=== PATIENT | female | born 1975 | race Two or more races ===

== ENCOUNTER → 2024-03-26 | Outpatient (CLI) | payer MEDICAID, SELFPAY | END | disposition home or self-care (01) | PROVIDERS: PCP Internal Medicine; Referring Provider Internal Medicine; Visit Provider Student in an Organized Health Care Education/Training Program | DX: S91.302A Unspecified open wound, left foot, initial encounter (principal); X58.XXXA Exposure to other specified factors, initial encounter; M14.672 Charcot's joint, left ankle and foot; I10 Essential (primary) hypertension; D64.9 Anemia, unspecified; E11.40 Type 2 diabetes mellitus with diabetic neuropathy, unspecified; Z99.2 Dependence on renal dialysis; Z86.73 Personal history of transient ischemic attack (TIA), and cerebral infarction without residual deficits; M21.6X2 Other acquired deformities of left foot | CPT/HCPCS: 11042; 99213; A9270; G0463 ==

== ENCOUNTER → 2024-04-03 | Outpatient (CLI) | payer MEDICAID, SELFPAY | END | disposition home or self-care (01) | PROVIDERS: PCP Internal Medicine; Referring Provider Internal Medicine; Visit Provider Surgery | DX: S91.302A Unspecified open wound, left foot, initial encounter (principal); X58.XXXA Exposure to other specified factors, initial encounter; M14.672 Charcot's joint, left ankle and foot; I10 Essential (primary) hypertension; D64.9 Anemia, unspecified; E11.40 Type 2 diabetes mellitus with diabetic neuropathy, unspecified; Z99.2 Dependence on renal dialysis; Z86.73 Personal history of transient ischemic attack (TIA), and cerebral infarction without residual deficits; M21.6X2 Other acquired deformities of left foot | CPT/HCPCS: 99213; A9270; G0463 ==

== ENCOUNTER → 2024-04-15 | Outpatient (CLI) | payer MEDICAID, SELFPAY | END | disposition home or self-care (01) | LOC: SWHD 14:15 | PROVIDERS: PCP Internal Medicine; Referring Provider Internal Medicine; Visit Provider Student in an Organized Health Care Education/Training Program | DX: S91.302A Unspecified open wound, left foot, initial encounter (principal); X58.XXXA Exposure to other specified factors, initial encounter; M14.672 Charcot's joint, left ankle and foot; I10 Essential (primary) hypertension; D64.9 Anemia, unspecified; E11.40 Type 2 diabetes mellitus with diabetic neuropathy, unspecified; Z99.2 Dependence on renal dialysis; Z86.73 Personal history of transient ischemic attack (TIA), and cerebral infarction without residual deficits; M21.6X2 Other acquired deformities of left foot | CPT/HCPCS: 17250; A9270 ==

== ENCOUNTER → 2024-04-22 | Outpatient (CLI) | payer MEDICAID, SELFPAY | END | disposition home or self-care (01) | LOC: SWHD 14:05 | PROVIDERS: PCP Internal Medicine; Referring Provider Internal Medicine; Visit Provider Student in an Organized Health Care Education/Training Program | DX: S91.302A Unspecified open wound, left foot, initial encounter (principal); X58.XXXA Exposure to other specified factors, initial encounter; M14.672 Charcot's joint, left ankle and foot; I10 Essential (primary) hypertension; D64.9 Anemia, unspecified; E11.40 Type 2 diabetes mellitus with diabetic neuropathy, unspecified; Z99.2 Dependence on renal dialysis; Z86.73 Personal history of transient ischemic attack (TIA), and cerebral infarction without residual deficits; M21.6X2 Other acquired deformities of left foot | CPT/HCPCS: 99212; G0463 ==

== ENCOUNTER → 2024-05-03 | Outpatient (CLI) | payer MEDICAID, SELFPAY | END | disposition home or self-care (01) | LOC: SWHD 14:31 | PROVIDERS: PCP Internal Medicine; Referring Provider Internal Medicine; Visit Provider Physician Assistant | DX: S91.302A Unspecified open wound, left foot, initial encounter (principal); X58.XXXA Exposure to other specified factors, initial encounter; L97.429 Non-pressure chronic ulcer of left heel and midfoot with unspecified severity; M14.672 Charcot's joint, left ankle and foot; I10 Essential (primary) hypertension; D64.9 Anemia, unspecified; E11.40 Type 2 diabetes mellitus with diabetic neuropathy, unspecified; Z99.2 Dependence on renal dialysis; Z86.73 Personal history of transient ischemic attack (TIA), and cerebral infarction without residual deficits; M21.6X2 Other acquired deformities of left foot; R60.0 Localized edema | CPT/HCPCS: 99213; G0463 ==

== ENCOUNTER → 2024-05-17 | Outpatient (CLI) | payer MEDICAID, SELFPAY | END | disposition home or self-care (01) | LOC: SWHD 15:38 | PROVIDERS: PCP Internal Medicine; Referring Provider Internal Medicine; Visit Provider Surgery | DX: S91.302A Unspecified open wound, left foot, initial encounter (principal); X58.XXXA Exposure to other specified factors, initial encounter; L97.429 Non-pressure chronic ulcer of left heel and midfoot with unspecified severity; M14.672 Charcot's joint, left ankle and foot; I10 Essential (primary) hypertension; D64.9 Anemia, unspecified; E11.40 Type 2 diabetes mellitus with diabetic neuropathy, unspecified; Z99.2 Dependence on renal dialysis; Z86.73 Personal history of transient ischemic attack (TIA), and cerebral infarction without residual deficits; M21.6X2 Other acquired deformities of left foot; R60.0 Localized edema | CPT/HCPCS: 99212; G0463 ==

== ENCOUNTER 2024-07-11 06:40 | Day surgery (SDC) | payer MEDICAID, SELFPAY ==
--- NOTE | 2024-07-10 06:50 | EKG_ITS ---
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
[2024-07-10 09:16] VITALS: BMI 40.8
[2024-07-10 11:05] LABS: Basophils % (Auto) 1 % (0-2.5); Eosinophils # (Auto) 0.1 Thou/mm3 (0.0-0.5); Eosinophils % (Auto) 2 % (0-10); Hematocrit 34.2 % (36.0-46.0); Hemoglobin 11.2 g/dL (12.0-16.0); Immature Granulocytes % (Auto) 1 % (0-0); Immature Granulocytes Auto 0.03 Thou/mm3 (0.00-0.00); Lymphocytes # (Auto) 3.5 Thou/mm3 (1.0-4.8); Lymphocytes % (Auto) 54 % (10-50); Mean Corpuscular HGB Conc 32.7 g/dl (31.0-37.0); Mean Corpuscular Hemoglobin 29.9 pg (25.0-35.0); Mean Corpuscular Volume 91 fL (80-100); Monocytes # (Auto) 0.3 Thou/mm3 (0.0-0.8); Monocytes % (Auto) 5 % (0-12); Neutrophils # (Auto) 2.4 Thou/mm3 (1.8-7.7); Neutrophils % (Auto) 38 % (37-80); Nucleated Red Blood Cell % 0 /100 WBC (0); Platelet Count 207 Thou/mm3 (140-440); RDW Standard Deviation 45.4 fL (36.4-46.3); Red Blood Count 3.75 Miln/mm3 (4.00-5.20); White Blood Count 6.4 Thou/mm3 (3.6-11.0)
[2024-07-10 11:12] LABS: Partial Thromboplastin Time 29.2 Seconds (22.0-36.0); Prothrombin Time 10.8 Seconds (9.0-12.2)
[2024-07-10 11:15] LABS: Beta HCG,Quantitative 2 mIU/mL (<5.0)
[2024-07-10 11:27] LABS: Alanine Aminotransferase < 7 U/L (10-49); Albumin, Serum 4.3 gm/dL (3.5-5.0); Albumin/Globulin Ratio 1.5 (1.2-2.2); Alkaline Phosphatase 111 U/L (46-116); Anion Gap 8 (7-16); Aspartate Amino Transferase 13 U/L (0-34); BUN/Creatinine Ratio 13 Ratio (12-20); Bilirubin,Total 0.2 mg/dL (0.3-1.2); Blood Urea Nitrogen 33 mg/dL (9-23); Calcium 9.5 mg/dL (8.3-10.6); Calcium (Corrected) 9.5 mg/dL (8.5-10.1); Carbon Dioxide 30.5 mMol/L (20.0-31.0); Chloride 101 mMol/L (98-107); Creatinine (Component) 2.6 mg/dL (0.6-1.3); Estimated Creatinine Clearance 30.6 mL/min (>60); Globulin 2.8 gm/dL (2.3-3.5); Glucose 215 mg/dL (74-106); Osmolality,Calculated 290 (275-295); Potassium 5.4 mMol/L (3.4-5.1); Sodium 139 mMol/L (136-145); Total Protein 7.1 gm/dL (5.7-8.2); eGFR 22 See Note
[2024-07-11] VITALS (8 sets, daily range): BP systolic 144–173; BP diastolic 82–92; PULSE 71–85; RESP 12–19; TEMP 36.1–36.4; O2SAT 97–100; BMI 41.3
[2024-07-11 07:31] LABS: Potassium 5.2 mMol/L (3.4-5.1)
--- NOTE | 2024-07-11 10:31 | PD.SUROPNT ---
Date of Procedure 07/11/24 Pre Op Diagnosis End-stage renal disease Post Op Diagnosis Same as preop diagnosis Procedure Creation of arteriovenous fistula left arm between the radial artery and cephalic vein Findings Excellent flow in the fistula Procedure Description With patient supine in her attic general esthesia left arm sterilely prepped and draped. A timeout was performed. Ultrasound was used to map out the location of the cephalic vein relative to the radial artery and a curvilinear incision was then made in the wrist. The subcutaneous tissues were dissected to expose the cephalic vein which was ligated distally and mobilized throughout the length of the incision. The dissection was then deepened to expose the radial artery. It had circumferential atherosclerosis but was able to be crossclamped and had excellent flow on Doppler evaluation. After the crossclamping a large 2 arteriotomy was made and stay sutures were placed. The vein was then cut to size and sewn to the artery with a combination of interrupted and running 7-0 Prolene sutures. Before completion the artery was 4 flushed and back flushed the vein was flushed and then the anastomotic area was copiously irrigated with heparin saline. The anastomosis was completed and flow was established. There was a strong palpable thrill within the fistula hemostasis was obtained of the wounds and then was closed in layers with 3-0 Vicryl the skin pertains tissues and 4-0 Monocryl subcuticular skin closure. Dermabond dressing was applied the patient woke well from anesthesia was moved to recovery in stable condition Anesthesia other (Laryngeal mask anesthesia) Pathology / specimen None Estimated Blood Loss 50 Condition Stable Surgeon Teddy Santos MD Surgical Staff Operation Date: 07/11/24 09:45 Case Staff GEOPHYSICAL LABORATORY SUPERVISOR: Delfin Chapa RN First Assistant: Binta Valentino
--- NOTE | 2024-07-11 10:41 | ESOP_ITS ---
Date of Procedure 07/11/24 Pre Op Diagnosis End-stage renal disease Post Op Diagnosis Same as preop diagnosis Procedure Creation of arteriovenous fistula left arm between the radial artery and cephalic vein Findings Excellent flow in the fistula Procedure Description With the patient supine under adequate general esthesia left upper extremity sterilely prepped and draped. A timeout was performed. Ultrasound was used to map out the course Surgeon Teddy Santos MD Surgical Staff Operation Date: 07/11/24 09:45 Case Staff LICENSED DISPENSING OPTICIAN: Delfin Chapa RN First Assistant: Binta Valentino
--- NOTE | 2024-07-11 10:44 | SUR.PHASEI ---
1044: Pt. AAOx4, vitals stable, breathing unlabored, no complaint of pain or nausea, dressing to left lower arm CDI, no active bleed noted, bruit and thrill present to fistula, dialysis cath present to right upper chest, bilateral radial pulses strong and regular, pt. able to wiggle bilateral fingers, cap refill to bilateral hands less than 3 seconds, report received from Delfin RIDDLE and Zachary GILLETTE.
--- NOTE | 2024-07-11 11:44 | SUR.PHASEII ---
1144: Pt. AAOx4, vitals stable, breathing unlabored, no complaint of pain or nausea, dressing to left lower arm CDI, no active bleed noted, bruit and thrill present to left AV Fistula, right chest dialysis cath in place, pt. tolerated sips of water well, pt. ambulated with assist to her personal wheelchair, Gave discharge instructions to the pt. and her ride using rat trapper, both verbalized understanding and had no further questions. Pt. left with all personal belongings.
== END 2024-07-11 15:01 | disposition home or self-care (01) ==
PROVIDERS: Anesthesiology; PCP Internal Medicine; Referring Provider Surgery Vascular Surgery; Visit Provider Surgery Vascular Surgery
PROC: (CPT 36825; principal; 2024-07-11 09:30)
DX: N18.6 End stage renal disease (principal); I77.0 Arteriovenous fistula, acquired; Z01.810 Encounter for preprocedural cardiovascular examination; I70.223 Atherosclerosis of native arteries of extremities with rest pain, bilateral legs; E78.00 Pure hypercholesterolemia, unspecified; I12.0 Hypertensive chronic kidney disease with stage 5 chronic kidney disease or end stage renal disease; E11.22 Type 2 diabetes mellitus with diabetic chronic kidney disease
CPT/HCPCS: 36821; 36415; 80053; 84132; 84702; 85025; 85610; 85730; 93005; A4216; A4217; A4649; J0131; J0690; J1100; J1644; J2405; J2440; J2704; J3010; J3490; J0665

== ENCOUNTER → 2024-09-05 | Day surgery (SDC) | payer MEDICAID, SELFPAY ==
[2024-09-02 08:39] VITALS: BMI 46.1
[2024-09-02 09:23] LABS: Basophils % (Auto) 1 % (0-2.5); Eosinophils # (Auto) 0.2 Thou/mm3 (0.0-0.5); Eosinophils % (Auto) 3 % (0-10); Hematocrit 33.3 % (36.0-46.0); Hemoglobin 10.7 g/dL (12.0-16.0); Immature Granulocytes % (Auto) 0 % (0-0); Immature Granulocytes Auto 0.01 Thou/mm3 (0.00-0.00); Lymphocytes # (Auto) 1.9 Thou/mm3 (1.0-4.8); Lymphocytes % (Auto) 44 % (10-50); Mean Corpuscular HGB Conc 32.1 g/dl (31.0-37.0); Mean Corpuscular Hemoglobin 29.9 pg (25.0-35.0); Mean Corpuscular Volume 93 fL (80-100); Monocytes # (Auto) 0.3 Thou/mm3 (0.0-0.8); Monocytes % (Auto) 8 % (0-12); Neutrophils % (Auto) 45 % (37-80); Nucleated Red Blood Cell % 0 /100 WBC (0); Platelet Count 148 Thou/mm3 (140-440); RDW Standard Deviation 47.9 fL (36.4-46.3); Red Blood Count 3.58 Miln/mm3 (4.00-5.20); White Blood Count 4.5 Thou/mm3 (3.6-11.0)
[2024-09-02 09:38] LABS: Partial Thromboplastin Time 27.8 Seconds (22.0-36.0); Prothrombin Time 10.8 Seconds (9.0-12.2)
[2024-09-02 09:40] LABS: HCG,Qualitative Serum Negative
[2024-09-02 09:41] LABS: Alanine Aminotransferase < 7 U/L (10-49); Albumin, Serum 4.2 gm/dL (3.5-5.0); Albumin/Globulin Ratio 1.9 (1.2-2.2); Alkaline Phosphatase 110 U/L (46-116); Anion Gap 10 (7-16); BUN/Creatinine Ratio 13 Ratio (12-20); Bilirubin,Total 0.3 mg/dL (0.3-1.2); Blood Urea Nitrogen 36 mg/dL (9-23); Calcium 9.6 mg/dL (8.3-10.6); Calcium (Corrected) 9.6 mg/dL (8.5-10.1); Carbon Dioxide 30.4 mMol/L (20.0-31.0); Chloride 100 mMol/L (98-107); Creatinine (Component) 2.7 mg/dL (0.6-1.3); Estimated Creatinine Clearance 28.2 mL/min (>60); Globulin 2.2 gm/dL (2.3-3.5); Glucose 162 mg/dL (74-106); Osmolality,Calculated 291 (275-295); Potassium 4.2 mMol/L (3.4-5.1); Sodium 140 mMol/L (136-145); Total Protein 6.4 gm/dL (5.7-8.2); eGFR 21 See Note
[2024-09-05 13:05] LABS: Potassium 5.8 mMol/L (3.4-5.1)
[2024-09-05 13:13] VITALS: BP 152/94; PULSE 74; RESP 15; TEMP 36.8; O2SAT 96; BMI 42.0
== END | disposition home or self-care (01) ==
LOC: S2EX 12:35
PROVIDERS: Anesthesiology; PCP Internal Medicine; Referring Provider Surgery Vascular Surgery; Visit Provider Surgery Vascular Surgery
PROC: (CPT 36832; principal; 2024-09-05 15:00)
DX: N18.6 End stage renal disease (principal); Z53.9 Procedure and treatment not carried out, unspecified reason
CPT/HCPCS: 36832; 36415; 80053; 84132; 84703; 85025; 85610; 85730

== ENCOUNTER 2024-10-03 09:25 | Day surgery (SDC) | payer MEDICAID, SELFPAY ==
[2024-10-02 09:50] VITALS: BMI 43.0
[2024-10-02 11:06] LABS: Basophils # (Auto) 0.0 Thou/mm3 (0.0-0.2); Basophils % (Auto) 0 % (0-2.5); Eosinophils # (Auto) 0.1 Thou/mm3 (0.0-0.5); Eosinophils % (Auto) 2 % (0-10); Hematocrit 34.9 % (36.0-46.0); Hemoglobin 11.2 g/dL (12.0-16.0); Immature Granulocytes Auto 0.01 Thou/mm3 (0.00-0.00); Lymphocytes # (Auto) 2.1 Thou/mm3 (1.0-4.8); Lymphocytes % (Auto) 46 % (10-50); Mean Corpuscular HGB Conc 32.1 g/dl (31.0-37.0); Mean Corpuscular Hemoglobin 29.9 pg (25.0-35.0); Mean Corpuscular Volume 93 fL (80-100); Monocytes # (Auto) 0.3 Thou/mm3 (0.0-0.8); Monocytes % (Auto) 6 % (0-12); Neutrophils # (Auto) 2.0 Thou/mm3 (1.8-7.7); Neutrophils % (Auto) 45 % (37-80); Nucleated Red Blood Cell # 0.00 Thou/mm3 (0.00-0.00); Nucleated Red Blood Cell % 0 /100 WBC (0); Platelet Count 159 Thou/mm3 (140-440); RDW Standard Deviation 46.7 fL (36.4-46.3); Red Blood Count 3.75 Miln/mm3 (4.00-5.20); White Blood Count 4.5 Thou/mm3 (3.6-11.0)
[2024-10-02 11:12] LABS: INR 1.0 (0.9-1.3); Partial Thromboplastin Time 30.1 Seconds (22.0-36.0); Prothrombin Time 11.0 Seconds (9.0-12.2)
[2024-10-02 11:16] LABS: HCG,Qualitative Serum Negative
[2024-10-02 11:25] LABS: Alanine Aminotransferase < 7 U/L (10-49); Albumin, Serum 4.1 gm/dL (3.5-5.0); Albumin/Globulin Ratio 1.7 (1.2-2.2); Alkaline Phosphatase 90 U/L (46-116); Anion Gap 6 (7-16); Aspartate Amino Transferase 14 U/L (0-34); BUN/Creatinine Ratio 9 Ratio (12-20); Bilirubin,Total 0.3 mg/dL (0.3-1.2); Blood Urea Nitrogen 24 mg/dL (9-23); Calcium 9.1 mg/dL (8.3-10.6); Calcium (Corrected) 9.1 mg/dL (8.5-10.1); Carbon Dioxide 33.8 mMol/L (20.0-31.0); Chloride 102 mMol/L (98-107); Creatinine (Component) 2.6 mg/dL (0.6-1.3); Estimated Creatinine Clearance 31.5 mL/min (>60); Globulin 2.4 gm/dL (2.3-3.5); Glucose 131 mg/dL (74-106); Osmolality,Calculated 289 (275-295); Potassium 5.0 mMol/L (3.4-5.1); Sodium 142 mMol/L (136-145); Total Protein 6.5 gm/dL (5.7-8.2); eGFR 22 See Note
[2024-10-03] VITALS (9 sets, daily range): BP systolic 137–163; BP diastolic 71–93; PULSE 72–74; RESP 12–19; TEMP 36.1–36.5; O2SAT 93–100; BMI 41.8
[2024-10-03 10:34] LABS: Potassium 4.3 mMol/L (3.4-5.1)
--- NOTE | 2024-10-03 14:20 | SUR.PHASEI ---
1420: Pt. AAOx4, vitals stable, breathing unlabored, no complaint of pain or nausea, dressing to left lower arm CDI, no active bleed noted, bruit and thrill present to left lower fistula, report received from MD Olivera and Madison GILLETTE.
--- NOTE | 2024-10-03 14:22 | PD.SUROPNT ---
Date of Procedure 10/03/24 Pre Op Diagnosis End-stage renal disease Post Op Diagnosis Same as preop diagnosis Procedure Revision of arteriovenous fistula left upper extremity via cephalic vein transposition Findings Excellent flow in the fistula Procedure Description With the patient supine under laryngeal mask anesthesia left upper extremity sterilely prepped and draped. A timeout was performed. The ultrasound is used to map out the course of the cephalic vein between the wrist and the antecubital fossa. A #15 blade was then used to make an incision from the antecubital fossa to the wrist. The subcutaneous tissues were dissected with electrocautery and with the help with the harmonic focus scalpel to expose the cephalic vein. All branches were ligated with either hemoclips or 3-0 silk ties. After the vein was completely freed from surrounding tissues all over the length of the incision a lateral skin flap was made and then the subcutaneous tissues were reapproximated beneath the vein with a running 3-0 Vicryl suture and the skin was closed with a 4-0 Monocryl suture. A Prineo dressing was then applied. The patient woke up from anesthesia was moved to recovery in stable condition Anesthesia other (Laryngeal mask anesthesia) Pathology / specimen None Estimated Blood Loss 50 Condition Stable Disposition PACU Surgeon Teddy Santos MD Surgical Staff Operation Date: 10/03/24 12:30 Case Staff Anesthesiologist: Mumtaz Olivera RN First Assistant: Eduarda Cuellar
[2024-10-03] MEDS: fentaNYL CIT INJ 50 mCg/ML AMP 2ML 25 MCG IVP ×4 (14:30→14:58)
[2024-10-03] MEDS: ONDANSETRON INJ 2 MG/ML INJ 2 ML 4 MG IVP (15:00)
--- NOTE | 2024-10-03 15:40 | SUR.PHASEII ---
1540: Pt. AAOx4, vitals stable, breathing unlabored, complaint of pain, pt. stated pain is better than it was, no complaint of nausea, dressing to left arm had scant drainage, notified MD Santos, MD Santos came to bedside and assessed the dressing, he stated to wrap it with kerlix and to let the pt. know if it is still oozing after today, to call his office. Kerlix was wrapped around fistula and secured with silk tape, pt. tolerated well. Pt. tolerated bites of pudding well and sips of juice. Gave discharge instructions to the pt. and her ride using fur blower, both verbalized understanding and had no further questions. Pt. left with all personal belongings.
== END 2024-10-03 15:40 | disposition home or self-care (01) ==
PROVIDERS: Anesthesiology; Referring Provider Surgery Vascular Surgery; Visit Provider Surgery Vascular Surgery
PROC: (CPT 36832; principal; 2024-10-03 12:15)
DX: I12.9 Hypertensive chronic kidney disease with stage 1 through stage 4 chronic kidney disease, or unspecified chronic kidney disease (principal); I77.0 Arteriovenous fistula, acquired; N18.6 End stage renal disease; E11.22 Type 2 diabetes mellitus with diabetic chronic kidney disease
CPT/HCPCS: 36832; 36415; 80053; 84132; 84703; 85025; 85610; 85730; A4216; A4217; A4649; J0131; J0690; J1100; J1644; J2250; J2371; J2405; J2440; J2704; J3010; J3490; A9270; J0665